=== PATIENT | male | born 2000 | race Caucasian/White ===

== ENCOUNTER 2020-03-03 19:59 | Emergency (ER) | payer OTHER ==
[~2020-03-03] VITALS: Ht 182.9 cm; Wt 125.0 kg
[~2020-03-03 19:59] MED LIST: CLONIDINE0.1 MG PO; FLUARIX QUADRIV1 IN1 IM; FLUARIX QUADRIV1 INJ IM; FLUMIST QUADRIV1 SUS; FOCALIN10 MG PO; GARDASIL IM; GNP MELATONIN MA5 MG PO; MELATONIN CR10 MG PO; MELATONIN MAXIM10 MG; MULTI COMPLT PO; TRAZODONE50 MG PO; ULTRAM50 MG PO; VARIVAX SC; VYVANSE20 MG PO; VYVANSE30 MG PO
[2020-03-03 21:05] LABS: HEMATOCRIT 46.9 % (39.0-50.0); HEMOGLOBIN 15.9 g/dl (14.0-18.0); IMMATURE GRANULOCYTES 0.4 % (0.0-5.0); MEAN CELL VOLUME 84.7 fL CALC (80.0-100.0); MEAN CORPUSCULAR HGB 28.7 pG CALC (26.0-32.0); MEAN CORPUSCULAR HGB CONC 33.9 g/dL CAL (32.0-36.0); NEUT# 11.32 thou/uL (1.82-7.42); RED BLOOD COUNT 5.54 mill/uL (4.70-6.10); RED CELL DISTRI WIDTH 11.9 % (11.5-15.5)
[2020-03-03 21:27] LABS: ALBUMIN 4.7 g/dL (3.2-5.0); ALKALINE PHOSPHATASE 79 u/l (38-126); AMYLASE 76 u/l (30-110); ANION GAP 15 (6-22 (CALC)); BILIRUBIN, TOTAL 0.7 mg/dL (0.0-1.4); BUN 16 mg/dL (9-20); BUN/CREATININE RATIO 21 (12-20 (CALC)); CARBON DIOXIDE 22 mmol/l (22-30); CHLORIDE 104 mmol/l (95-108); CREATININE 0.8 mg/dL (0.7-1.3); GFR > 60 ML/MIN (>=60 (CALC)); GFR FOR AFR.AMER. > 60 ML/MIN (>=60 (CALC)); LIPASE 43 u/l (23-300); POTASSIUM 4.1 mmol/l (3.5-5.1); SGOT/AST 34 u/l (17-59); SODIUM 137 mmol/l (137-146); TOTAL PROTEIN 8.1 g/dL (6.3-8.2)
[2020-03-03 21:32] LABS: URINE BLOOD DIPSTICK LARGE (NEGATIVE); URINE COLOR YELLOW; URINE GLUCOSE - DIPSTICK NEGATIVE (NEGATIVE); URINE KETONE NEGATIVE (NEGATIVE); URINE LEUK ESTERASE NEGATIVE (NEGATIVE); URINE NITRITE - DIPSTICK NEGATIVE (Negative); URINE PROTEIN - DIPSTICK 30 mg/dL (NEG-TRACE); URINE SPECIFIC GRAVITY >=1.030; URINE UROBILINOGEN - DIPSTICK 0.2 E.U./dL (0.2)
[2020-03-03 21:35] LABS: URINE BILIRUBIN - DIPSTICK NEGATIVE (NEGATIVE)
[2020-03-03 21:41] LABS: URINE RBC 25-50 RBC/hpf (0-5); URINE WBC 0-2 WBC/hpf (0-5)
[2020-03-03 23:09] VITALS: BP 140/81
[2020-03-03] MEDS ORDERED: TAMSULOSIN0.4 MG PO (23:09)
[2020-03-03] MEDS ORDERED: NORCO1 TA2 PO (23:09)
[2020-03-03] MEDS ORDERED: ONDANSETRON4 MG PO (23:09)
== END 2020-03-03 23:09 | disposition home or self-care (01) ==
LOC: ED 19:59
PROVIDERS: Emergency Medicine
DX: N20.1 Calculus of ureter (principal)